=== PATIENT | male | born 1940 | race Two or more races ===

== ENCOUNTER 2016-05-31 09:31 | Emergency (ER) | payer OTHER, BC ==
[2016-05-31 09:55] VITALS: BP 143/75; PULSE 75; RESP 16; TEMP 97.8; O2SAT 96
--- NOTE | 2016-05-31 11:16 | UCPHY ---
[id number]. pt denies cough. Time Seen by Provider: 05/31/16 10:46 HPI/ROS: Chief complaint: Sore throat HISTORY OF PRESENT ILLNESS: This is a 75-year-old male with a history of MS who presents with 4-5 days of sore throat, nasal congestion and nasal drainage. His highest temperature is been 99.8. He does report myalgias. He has not had cough or chest pain and is not short of breath. He denies headache, earache , sinus pain, drainage in the back of his throat. He has had a flu vaccination. REVIEW OF SYSTEMS: A ten point review of systems was performed and is negative with the exception of the items mentioned in the HPI. Source: Patient, Family Exam Limitations: No limitations - Personal History Current Tetanus Diphtheria and Acellular Pertussis (TDAP): Unsure - Medical/Surgical History Hx Asthma: No Hx Chronic Respiratory Disease: No Hx Diabetes: No Hx Cardiac Disease: No Hx Renal Disease: No Hx Cirrhosis: No Hx Alcoholism: No Hx HIV/AIDS: No Hx Splenectomy or Spleen Trauma: No Other PMH: MS - Family History Significant Family History: No pertinent family hx - Social History Smoking Status: Never smoked Additional Social History: He lives in [place] with his . He is a retired school traffic guard. He does not use tobacco products. - Physical Exam Exam: General Appearance: Alert. Vital signs reviewed. Occasional dry cough. Eyes: Pupils equal and round, no conjunctival injection, no discharge. Anicteric. ENT, Mouth: Mucous membranes are moist, moderate oropharyngeal erythema without edema or exudates. No drainage in the posterior oropharynx. He is swallowing easily. Dentition intact. Neck: Mild anterior cervical lymphadenopathy, supple. Respiratory: Lungs are clear to auscultation; no wheezes, rales, or rhonchi. Cardiovascular: Regular rate and rhythm; no murmur, rub, or gallop. Gastrointestinal: Abdomen is soft and nontender, no masses or organomegaly, bowel sounds normal. Skin: Warm and dry, no rashes on exposed skin, normal color. Neurological: Alert and oriented. Moving all four extremities easily and equally. Psychiatric: Normal affect. Constitutional: Initial Vital Signs Temperature (C) 36.6 C 05/31/16 09:53 Heart Rate 75 05/31/16 09:53 Respiratory Rate 16 05/31/16 09:53 Blood Pressure 143/75 H 05/31/16 09:53 O2 Sat (%) 96 05/31/16 09:53 O2 Delivery Mode Room Air Allergies/Adverse Reactions: No Known Allergies Allergy (Unverified 05/31/16 09:56) Home Medications: Medication Instructions Recorded Ms Medication 05/31/16 Medical Decision Making ED Course/Re-evaluation: 75-year-old male with a history of multiple sclerosis who presents with what is most likely a viral pharyngitis/upper respiratory infection. Rapid strep test is negative. He has 4-5 days into this illness and flu testing will not change our management. He does not appear ill or toxic. He is not febrile and is having no difficulty breathing. He will continue with [id number] symptomatic treatments. He is advised to stay well hydrated and to rest. This infection does not appear to have exacerbated his multiple sclerosis. He has some gait imbalance and fatigues easily as his baseline; no other symptoms of multiple sclerosis. Differential Diagnosis: DDx includes but is not limited to viral or bacterial pharyngitis, URI, bronchitis, pneumonia, influenza. Departure - Departure Disposition: Home, Routine, Self-Care Clinical Impression: Pharyngitis Qualifiers: Pharyngitis/tonsillitis etiology: unspecified etiology Qualifier Code: (J02.9) Acute pharyngitis, unspecified Condition: Good Instructions: Pharyngitis (ED) Additional Instructions: This is most likely a viral illness. Continue with [id number] treatments. Adult Pain & Fever Control: We recommend Acetaminophen (Tylenol) and Ibuprofen (Motrin,Advil) for pain and fever control. When fever is high or pain severe, both drugs can be used at the same time, but at different intervals. Please note the time differences. Your dose is: Acetaminophen 650mg every 4 to 6 hours Ibuprofen 400mg every 8 hours with food OR Note: do not take Acetaminophen with Hydrocodone (Vicodin, Lortab) or Oycodone (Percocet). These medications also contain Acetaminophen. No more than 3000mg of Acetaminophen should be taken in 24 hours (for an adult). Referrals: OUT OF STATE,. [Primary Care Provider] - As per Instructions - PQRS PQRS Measurement: 134: Depression screening and followup, PRIME MD-PHQ2 (12 years and older) Over the last 2 weeks, how often have you been bothered by any of the following problems? 1. Feeling down, depressed, or hopeless? 2. Little interest or pleasure in doing things? Patient answered no to both 1 and 2 130: Documentation of medications. Reviewed all patient medications, doses, route and frequency. . 226: Do you smoke? No. 47: 65 and older: Advanced care planning. Patient designates surrogate decision maker as parent spouse . Patient has advanced directive. 51: 18 years old and older with diagnosis of COPD, spirometry performance. Patient has no history of COPD 52: 18 years old and older with COPD and symptoms of COPD or FEV1<60% predicted prescribed a B Agonist. Does not apply
== END 2016-05-31 11:18 | disposition home or self-care (01) ==
LOC: CED 09:31
DX: J02.9 Acute pharyngitis, unspecified (principal); R09.81 Nasal congestion; R50.9 Fever, unspecified
CPT/HCPCS: 87880-PO; 99214-PO; G0463-PO